=== PATIENT | female | born 1965 | race Caucasian/White ===

== ENCOUNTER → 2016-07-08 | Outpatient (CLI) | payer MEDICAID ==
[~2016-07-08] MED LIST: ALPR0.5T78 PO; ASPI-557 PO; CETI-269 PO; CHOL200014 PO; CITA40TA6 PO; CYCL-375 PO; DICL100G5 TOP; DILT300C3 PO; FISH1CAP59 PO; ISOS60TA4 PO; LEVO112T7 PO; METF10002 PO; MULT1TAB69 PO; NITR4.1S2 SL; OMEP20CA10 PO; PRAV40TA44 PO; PROM25TA7 PO; SPIR25TA PO; TOPI50TA PO; TRAM50TA4 PO
--- NOTE | 2016-07-08 14:06 | DI ---
Indication: ITS.REASON: T14.90 HEAD TRAUMA; R56.9 SEIZURE DISORDER Procedure: CT HEAD W/O CONTRAST: Encounter: Initial Comparison: 12/29/2015, 05/09/2014 Technique: Axial CT images through the head were performed without contrast. Iterative Reconstruction dose reducing technique was utilized. FINDINGS: The normal sethi-white matter differentiation is maintained. No intra-axial or extra-axial mass or hemorrhage seen. No mass effect or midline shift. The ventricles and cerebral sulci are normal in size, shape, and configuration without evidence of hydrocephalus. The basilar cisterns are patent. No extracalvarial scalp swelling. No acute calvarial fracture. The visualized paranasal sinuses and mastoid air cells are well-aerated. The visualized orbits and globes appear normal. IMPRESSION: No acute intracranial process identified by CT. .
== END ==
LOC: IMA 13:09
DX: G40.909 Epilepsy, unspecified, not intractable, without status epilepticus (principal); Z91.81 History of falling

== ENCOUNTER → 2016-07-31 | Outpatient (CLI) | payer MEDICAID ==
[~2016-07-31] MED LIST changes: +GADOBUTROL 10mMol/10ml INJECTION IV ONE; +SALINE FLUSH 10ml SYRINGE ONE
--- NOTE | 2016-07-31 12:49 | DI ---
Indication: ITS.REASON: G40.209 Localization-related (focal) (partial) symptomat; S06.0X0, history of persistent seizures PROCEDURE: MRI BRAIN W/WO CONTRAST: Encounter: Initial Comparisons: Head CT dated July 08, 2016 Technique: Multiplanar, multisequence, MR imaging of the head with and without contrast was acquired. Contrast: 6.5 mL of Gadavist FINDINGS: The ventricles are of normal size, shape, and contour for the patient's age. There are two tiny nonspecific punctate areas of T2-weighted and T2 FLAIR weighted signal abnormality in the deep frontoparietal white matter that most likely represent small vessel ischemic disease. This is of a degree that is considered to be normal for the patient's age. No evidence of mesial temporal sclerosis. The brain stem, cerebellum, and cerebral hemispheres otherwise have a normal morphologic appearance as well as MR signal intensity on all pulse sequences. Following intravenous administration of contrast, no areas of abnormal enhancement are evident. There are no areas of restricted diffusion to suggest an acute infarct. There is no evidence of an intracranial mass lesion, intracranial hemorrhage, or hydrocephalus. The visualized portions of the orbits, calvarium, paranasal sinuses, and skull base demonstrate no significant abnormality. IMPRESSION: Unremarkable MRI of the head for the patient's age with and without contrast. .
== END ==
LOC: IMA 09:49
DX: R56.9 Unspecified convulsions (principal); F41.8 Other specified anxiety disorders; Z87.898 Personal history of other specified conditions
CPT/HCPCS: 70553; 95816; A9585